=== PATIENT | female | born 1970 | race Caucasian/White ===

== ENCOUNTER 2017-10-25 16:08 | Emergency (ER) | payer BC ==
[~2017-10-25] VITALS: Ht 175.3 cm; Wt 73.5 kg
[2017-10-25 16:22] VITALS: Ht 175.3 cm; Wt 73.5 kg
[2017-10-25 17:08] VITALS: BP 118/64
== END 2017-10-25 17:08 | disposition home or self-care (01) ==
LOC: ED 16:08
DX: R11.10 Vomiting, unspecified (principal); R19.7 Diarrhea, unspecified; F17.210 Nicotine dependence, cigarettes, uncomplicated; R03.0 Elevated blood-pressure reading, without diagnosis of hypertension; R10.13 Epigastric pain; Z71.6 Tobacco abuse counseling
CPT/HCPCS: 99406; Q0162

== ENCOUNTER 2018-07-23 10:59 | Emergency (ER) | payer BC ==
[~2018-07-23] VITALS: Ht 175.3 cm; Wt 72.1 kg
[2018-07-23 11:04] VITALS: Ht 175.3 cm; Wt 72.1 kg
[2018-07-23 11:36] LABS: BASOPHIL % 0.1 % (0-2); PLATELET COUNT 213 x10^3mcL (130-400); RED CELL DISTRIBUTION WIDTH 13.4 % (11.5-14.5)
[2018-07-23 11:50] LABS: CALCIUM 9.2 mg/dL (8.5-10.1); CHLORIDE SERUM 97 mmol/L (98-107); CREATININE SERUM 0.9 mg/dL (0.6-1.0); GFR1 > 60 mL/min; GLUCOSE SERUM 102 mg/dL (74-106); POTASSIUM SERUM 3.9 mmol/L (3.5-5.1); SODIUM SERUM 134 mmol/L (136-145)
[2018-07-23 11:54] LABS: ALKALINE PHOSPHATASE 35 U/L (46-116); ALT/SGPT 33 U/L (14-59); AST/SGOT 21 U/L (15-37); BILIRUBIN TOTAL 1.05 mg/dL (0.20-1.00); LIPASE 54 IU/L (73-393); TOTAL PROTEIN, SERUM 7.7 g/dL (6.4-8.2)
[2018-07-23 12:15] LABS: AMPHETAMINE QUAL UR NONE DETECTED (See below)
[2018-07-23 14:13] VITALS: BP 131/87
== END 2018-07-23 14:13 | disposition home or self-care (01) ==
LOC: ED 10:59
PROVIDERS: Emergency Medicine
DX: R19.7 Diarrhea, unspecified (principal); R11.10 Vomiting, unspecified; N39.0 Urinary tract infection, site not specified; G40.909 Epilepsy, unspecified, not intractable, without status epilepticus; F12.90 Cannabis use, unspecified, uncomplicated; F17.210 Nicotine dependence, cigarettes, uncomplicated; Z98.890 Other specified postprocedural states; Z60.2 Problems related to living alone
CPT/HCPCS: J1885; J3490; J7030

== ENCOUNTER 2020-01-11 06:58 | Day surgery (SDC) | payer BC, SELFPAY ==
[~2020-01-11] VITALS: Ht 175.3 cm; Wt 68.0 kg
[2020-01-11 07:21] VITALS: BP 141/92
[2020-01-11 11:04] VITALS: BP 123/81
== END 2020-01-11 10:55 | disposition home or self-care (01) ==
LOC: DS 06:58 → SD 08:57 → DS 10:55 → SD 12:42
PROVIDERS: ATTEND Internal Medicine Gastroenterology
DX: R10.13 Epigastric pain (principal); K31.7 Polyp of stomach and duodenum; K31.89 Other diseases of stomach and duodenum; Z20.828 Contact with and (suspected) exposure to other viral communicable diseases
CPT/HCPCS: 43235; J1200; J1610; J2250; J2310; J3010; J3490; U0003